=== PATIENT | male | born 1970 | race Caucasian/White ===

== ENCOUNTER 2018-08-21 10:29 | Emergency (ER) | payer MEDICAID, OTHER ==
[~2018-08-21] VITALS: Ht 175.3 cm; Wt 75.0 kg
[2018-08-21] MEDS ORDERED: LORAZEPAM 2MG/ML CPJ IM STA (10:44)
[2018-08-21] MEDS ORDERED: HALOPERIDOL LACTATE 5MG/ML VIAL IM STA (10:44)
[2018-08-21] MEDS ORDERED: DIPHENHYDRAMINE 50MG/ML VIAL IM STA (10:44)
[2018-08-21] MEDS ORDERED: SODIUM CHLORIDE 0.9% 1,000 ML IV ONE (10:48)
[2018-08-21 11:37] LABS: BASOPHILS % 0.7 % (0.0-2.0); EOSINOPHILS % 0.4 % (0.0-5.0); HEMATOCRIT. 44.4 % (42.0-52.0); LYMPHOCYTES % 18.5 % (20.0-50.0); MEAN CORPUSCULAR HEMOGLOBIN 29.3 pg (28.0-32.0); MEAN PLATELET VOLUME 7.1 fl (7.4-10.4); MONOCYTES % 10.6 % (2.0-8.0); NEUTROPHILS % 69.8 % (40.0-76.0); PLATELET 142 x1000/uL (130-400); RED CELL DISTRIBUTION WIDTH 13.4 % (11.6-14.6)
[2018-08-21 11:39] LABS: CHLORIDE 104 mEq/L (98-107)
[2018-08-21 11:43] LABS: ETHANOL BLOOD < 10 mg/dL
[2018-08-21 12:09] LABS: CLARITY URINE TURBID (CLEAR); COLOR URINE YELLOW (YELLOW); KETONES URINE NEGATIVE (NEGATIVE); LEUKOCYTE ESTERASE URINE 1+ (NEGATIVE); NITRITE URINE NEGATIVE (NEGATIVE); OCCULT BLOOD URINE 1+ (NEGATIVE); PH URINE 8.5 (4.5-8.0); PROTEIN URINE TRACE (NEGATIVE); UROBILINOGEN URINE 0.2 E.U./dL (0.2-1.0)
[2018-08-21 12:47] LABS: *AMPHETAMINES SCREEN URINE PRESUMTIVE POSITIVE (NEGATIVE); *BARBITURATES SCREEN URINE NEGATIVE (NEGATIVE); *BENZODIAZEPINES SCREEN URINE NEGATIVE (NEGATIVE); *COCAINE SCREEN URINE NEGATIVE (NEGATIVE); CANNABINOID URINE SCREEN NEGATIVE (NEGATIVE); METHADONE URINE SCREEN NEGATIVE (NEGATIVE); OPIATES URINE SCREEN NEGATIVE (NEGATIVE); PHENCYCLIDINE URINE SCREEN NEGATIVE (NEGATIVE)
[2018-08-21] MEDS ORDERED: CEFTRIAXONE 1 G PREMIX 50 ML IV ONE (13:00)
[2018-08-21] MEDS ORDERED: HALOPERIDOL LACTATE 5MG/ML VIAL IM ONE (19:45)
[2018-08-22 10:48] VITALS: BP 105/68
== END 2018-08-22 10:44 | disposition home or self-care (01) ==
LOC: ER 10:29 → EDBD 10:29 → ER 08-22 10:44
DX: F15.188 Other stimulant abuse with other stimulant-induced disorder (principal); R46.1 Bizarre personal appearance
CPT/HCPCS: 36415; 80053; 80305; 80307; 80320; 80329; 81003; 85025; 87086; 96365; 96372; 99284; J0696; J1200; J1630; J2060; J7030; Z7610; G0480